=== PATIENT | male | born 1960 | race Caucasian/White ===

== ENCOUNTER 2020-11-16 13:27 | Emergency (ER) | payer MEDICAID ==
[~2020-11-16] VITALS: Ht 185.4 cm; Wt 84.4 kg
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
[2020-11-16 13:46] VITALS: BP 118/74
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
--- NOTE | 2020-11-16 15:13 | Diagnostic Imaging Report ---
Indication: Chronic neck pain Technique: Spiral acquisitions obtained through the cervical spine. No IV contrast utilized. Multiplanar reconstructions were generated. Total dose length product 541 mGycm. CTDIvol(s) 20 mGy. Dose reduction achieved using automated exposure control. Comparison: none Findings: There is slight straightening of the normal cervical lordosis. There is slight anterior offset of C3 on C4 and of C4 and C5. Otherwise normal bony alignment. No acute fracture. No dislocation. There is degenerative narrowing of the anterior atlantoaxial joint. At C2-3, the disc space is preserved. No significant disc bulge or protrusion or spinal stenosis. The neural foramina are preserved. There is facet arthrosis on the left. At C3-4, there is severe bilateral neural foraminal stenosis. Short pedicles and posterior osteophytes result in borderline narrowing of the spinal canal. There is bilateral facet arthrosis. There is mild degenerative disc narrowing At C4-5, there is mild degenerative disc narrowing. Short pedicles result in borderline narrowing of the spinal canal. There is moderate to severe right, severe left neural foraminal stenosis. There is bilateral facet arthrosis. At C5-6, there is marked narrowing of the disc. There is moderate to severe bilateral neural foraminal stenosis. There is moderate spinal canal stenosis. At C6-7, there is moderate to severe degenerative disc narrowing. There is moderate right and severe left neural foraminal stenosis. No significant disc bulge or protrusion or spinal stenosis. At C7-T1, no significant disc bulge or protrusion, spinal stenosis, or neural foraminal stenosis Small intraseptal bullae are seen at the lung apices. The included extra spinal soft tissues are unremarkable otherwise Impression: No acute bony trauma Degenerative changes as detailed on a level by level basis above Evidence of COPD incidentally noted The CT scanner at [facility] is accredited by the [employer] and the scans are performed using protocols designed to limit radiation exposure to as low as reasonably achievable to attain images of sufficient resolution adequate for diagnostic evaluation.
[2020-11-16] MEDS ORDERED: ROBAXIN-750750 MG PO (15:18)
[2020-11-16] MEDS ORDERED: LIDODERM700 M1 TOPIC (15:18)
[2020-11-16 15:30] VITALS: BP 125/72
--- NOTE | 2020-11-16 15:30 | NUR ---
ER DISCHARGE NOTE: Patient is cleared to be discharged per ERMD, pt is aox4, on room air, with stable vital signs. pt was given dc and prescription instructions, pt was able to verbalize understanding, pt id band removed. pt is able to ambulate with steady gait. pt took all belongings.
== END 2020-11-16 15:31 | disposition home or self-care (01) ==
LOC: EMR 13:56
DX: S16.1XXA Strain of muscle, fascia and tendon at neck level, initial encounter (principal); M48.02 Spinal stenosis, cervical region; M54.2 Cervicalgia; X58.XXXA Exposure to other specified factors, initial encounter; Y93.89 Activity, other specified; Y92.810 Car as the place of occurrence of the external cause
CPT/HCPCS: 72125; Z7502; 99284